=== PATIENT | female | born 1965 | race Caucasian/White ===

== ENCOUNTER → 2018-01-11 | Outpatient (CLI) | payer OTHER ==
[~2018-01-11] MED LIST: ATOR10 PO; DEPO400I IM; ECASA81 PO; MELA1TAB18 PO; MILK500C2 PO; MULT-65 PO; OMEGCAP PO; OMEP20TA93 PO; PRAV40TA2 PO; PRIL20TA2 PO; PROBCAP28 PO; TAB-TAB PO; VITA100021 SL; VITA2000 PO; VITA500T83 PO
[2018-01-11 14:07] LABS: AUTOMATED NEUTROPHIL # 3.8 TH/MM3 (1.8-7.7); BASOPHIL % 0.7 % (0.0-2.0); EOSINOPHIL % 0.5 % (0.0-4.0); HEMATOCRIT 38.3 % (35.0-46.0); HEMOGLOBIN 13.1 GM/DL (11.6-15.3); LYMPH % 30.5 % (9.0-44.0); LYMPHOCYTE # 1.9 TH/MM3 (1.0-4.8); MEAN CORPUSCULAR HEMOGLOBIN 34.3 PG (27.0-34.0); MEAN CORPUSCULAR HGB CONC 34.3 % (32.0-36.0); MEAN PLATELET VOLUME 8.1 FL (7.0-11.0); MONO % 7.9 % (0.0-8.0); MONOCYTE # 0.5 TH/MM3 (0-0.9); NEUT % 60.4 % (16.0-70.0); PLATELET COUNT 287 TH/MM3 (150-450); RED BLOOD COUNT 3.83 MIL/MM3 (4.00-5.30); RED CELL DISTRIBUTION WIDTH 13.3 % (11.6-17.2); WHITE BLOOD COUNT 6.2 TH/MM3 (4.0-11.0)
[2018-01-11 14:25] LABS: BILIRUBIN, URINE NEG (NEG); BLOOD, URINE NEG (NEG); GLUCOSE,URINE NEG (NEG); KETONE, URINE NEG (NEG); NITRITE,URINE NEG (NEG); PH, URINE 5.5 (5.0-8.5); SQUAMOUS EPITHELIAL CELL URINE <1 /hpf (0-5); URINE COLOR COLORLESS (YELLW/STRAW); URINE LEUKOCYTE ESTERASE TRACE (NEG)
--- NOTE | 2018-01-12 13:57 | EKG ---
Date Performed: 01/11/2018 Time Performed: 13:08:23 PTAGE: 52 years EKG: Sinus rhythm POSSIBLE RIGHT VENTRICULAR CONDUCTION DELAY BORDERLINE ECG PREVIOUS TRACING : 09/19/2015 15.15 DOCTOR: Walter Thorpe Interpretating Date/Time 01/12/2018 13:54:55
== END ==
LOC: CPRE 12:43
PROVIDERS: ATTEND Obstetrics & Gynecology
DX: Z01.812 Encounter for preprocedural laboratory examination (principal); Z01.810 Encounter for preprocedural cardiovascular examination; N87.0 Mild cervical dysplasia
CPT/HCPCS: 36415; 81001; 85025; 93005

== ENCOUNTER → 2018-01-13 | Day surgery (SDC) | payer OTHER ==
[~2018-01-13] MED LIST changes: +APREPITANT 40 MG CAP; -ATOR10 PO; -DEPO400I IM; +DO NOT ADM ANY ANTICOAGULANT DRUGS; -ECASA81 PO; +FAMOTIDINE 20 MG/2 ML VIAL; +INSULIN HUMAN REGULAR 1,000 UNITS/10 ML VIAL SQ; +KETOROLAC TROMETHAMINE 30 MG/ML (IVP) VIAL IV PUSH; +LACTATED RINGER'S 1000 ML INJ 1,000 ML IV; +LIDOCAINE HCL 1% PF 5 ML SYRINGE OTHER; -MELA1TAB18 PO; +METOCLOPRAMIDE HCL 10 MG/2 ML VIAL IV; +METOPROLOL TARTRATE 25 MG TAB PO; +MIDAZOLAM HCL 2 MG/2 ML VIAL; -MILK500C2 PO; -MULT-65 PO; -OMEGCAP PO; -OMEP20TA93 PO; +ONDANSETRON HCL 4 MG/2 ML VIAL IV PUSH; -PRAV40TA2 PO; -PRIL20TA2 PO; -PROBCAP28 PO; +PROPOFOL 200 MG/20 ML AMP IV; +SODIUM CHLORID 0.9% 500 ML IV; -TAB-TAB PO; -VITA100021 SL; -VITA2000 PO; -VITA500T83 PO; +ceFAZolin 2 GM/NS PREMIX 100 ML IV; +oxyCODONE/ACETAMINOPHEN 5 MG/325 MG TAB PO
[2018-01-13] MEDS: LACTATED RINGER'S 1000 ML IV (06:40)
[2018-01-13] MEDS: POVIDONE IODINE 5% (ANTISEPSIS KIT) 4 APPLICATIONS EACH NARE (06:40)
[2018-01-13] MEDS: CHLORHEXIDINE GLUCONATE 2 % 1 PACK (2 CLOTHS) TOPICAL (06:40)
[2018-01-13] MEDS: ACETAMINOPHEN 1000 MG/100 ML 100 ML IV (06:50)
[2018-01-13] MEDS: ceFAZolin INJ 1,000 MG VIAL (07:25)
[2018-01-13] MEDS: LIDOCAINE 0.5%/EPINEPHrine 1:200,000 SOLN 50 ML VIAL (07:35)
== END | disposition home or self-care (01) ==
LOC: HSDC 05:49
DX: D06.7 Carcinoma in situ of other parts of cervix (principal)
CPT/HCPCS: 57522; 88305; 88305-59

== ENCOUNTER 2018-03-17 13:01 | Inpatient (IN) ==
--- NOTE | 2018-03-16 19:51 | MH ---
cc: Jag Montiel MD, John A MD DATE OF ADMISSION: 03/17/2018 ADMITTING DIAGNOSIS: Carcinoma in situ of the cervix. HISTORY OF PRESENT ILLNESS: The patient is a 53-year-old white female, para 2-0-0-2, who had a Pap smear through her primary doctor on 10/13/2017 that showed high-grade dysplasia and returned to see me on 12/09/2017. On her colposcopy ectocervix was benign. ECC was positive. She underwent a LEEP cone biopsy with D and C on 01/13/2018. Pathology returned CIS with at least moderate dysplasia extending to the cervical margin. The ECC was negative. Endometrium was benign. She is now admitted for hysterectomy. PAST MEDICAL HISTORY/PAST SURGICAL HISTORY: She had a right total hip in 2012. She had ruptured appendix in the past. Ovarian wedge resection. MEDICATIONS: Prilosec. ALLERGIES: NONE. SMI: None. OBSTETRIC HISTORY: Two vaginal deliveries. SOCIAL HISTORY: She is , employed. Alcohol: None. Tobacco: Half pack a day for 30 years plus. Drugs: None. FAMILY HISTORY: Noncontributory. PHYSICAL EXAMINATION: GENERAL: A well-nourished, well-developed white female. VITAL SIGNS: Stable. HEENT: Normal. CHEST: Clear. CARDIAC: Regular rate BREASTS: Symmetrical. ABDOMEN: Benign. PELVIC: Shows atrophy. Cervix is small. Uterus is normal size, shape, anterior. No adnexal masses. ASSESSMENT: As above. PLAN: She is now admitted for an exam under anesthesia with either a laparoscopically assisted vaginal hysterectomy bilateral salpingo-oophorectomy or total abdominal hysterectomy with bilateral salpingo-oophorectomy. While in the office, I explained the procedure, the risks and benefits and complications. The patient would like to proceed. MD MIKE Mehta/ , 07:31 PM , 07:50 PM MIKE
[~2018-03-17 13:01] MED LIST changes: -APREPITANT 40 MG CAP; -DO NOT ADM ANY ANTICOAGULANT DRUGS; -FAMOTIDINE 20 MG/2 ML VIAL; +Glycopyrrolate Inj 1 MG/5 ML Syringe IV.PUSH ONE; -INSULIN HUMAN REGULAR 1,000 UNITS/10 ML VIAL SQ; -KETOROLAC TROMETHAMINE 30 MG/ML (IVP) VIAL IV PUSH; +Ketorolac Inj 30 MG/ML (IVP) Vial IV.PUSH ONE; -LACTATED RINGER'S 1000 ML INJ 1,000 ML IV; -LIDOCAINE HCL 1% PF 5 ML SYRINGE OTHER; +Lidocaine PF 1% Inj 5 ML Syringe INFILTRATN ONE; -METOCLOPRAMIDE HCL 10 MG/2 ML VIAL IV; -METOPROLOL TARTRATE 25 MG TAB PO; -MIDAZOLAM HCL 2 MG/2 ML VIAL; +Neostigmine Inj 5 MG/5 ML Syringe IV.PUSH ONE; -ONDANSETRON HCL 4 MG/2 ML VIAL IV PUSH; -PROPOFOL 200 MG/20 ML AMP IV; +Phenylephrine/NS 1000 MCG/10ML Syringe IV.PUSH ONE; -SODIUM CHLORID 0.9% 500 ML IV; -ceFAZolin 2 GM/NS PREMIX 100 ML IV; +hydrALAZINE HCl Inj 20 MG/ML Vial IV.PUSH ONE; -oxyCODONE/ACETAMINOPHEN 5 MG/325 MG TAB PO
[2018-03-17] MEDS ORDERED: Chlorhexidine Gluconate 2% 1 Pack (2 Cloths) TOPICAL SCH (13:45)
[2018-03-17] MEDS ORDERED: Metoprolol Tartrate 25 MG Tablet PO SCH (13:45)
[2018-03-17] MEDS ORDERED: Bupivacaine/Epinephrine 0.5% Inj 50 ML Vial ONE (13:56)
[2018-03-17] MEDS ORDERED: Estrogens Congugated Vag Cream w/app 30 GM Tube VAGINAL ONE (13:56)
[2018-03-17] MEDS ORDERED: Sodium Chlor 0.9% Inj 500 ML IV.SIG SCH (14:00)
[2018-03-17] MEDS ORDERED: Famotidine PF Inj 20 MG/2 ML Vial ONE (14:18)
[2018-03-17] MEDS ORDERED: Zolpidem Tartrate 5 MG Tablet PO PRN (17:15)
[2018-03-17] MEDS ORDERED: Naloxone Inj 0.4 MG/ML Vial IV.PUSH PRN (17:15)
[2018-03-17] MEDS ORDERED: HYDROmorphone PF Inj 2 MG/ML Vial ONE (17:17)
[2018-03-17] MEDS ORDERED: fentaNYL Citrate Inj 100 MCG/2 ML Ampul ONE (17:22)
--- NOTE | 2018-03-17 17:51 | MP ---
cc: Jag Monteil MD, John A MD DATE OF OPERATION: 03/17/2018 PREOPERATIVE DIAGNOSIS: SHREYAS 3 of the cervix. POSTOPERATIVE DIAGNOSIS: SHREYAS 3 of the cervix. Pathology pending. PROCEDURE PERFORMED: Exam under anesthesia followed by a LISA/BSO. ANESTHESIA: General ET. SURGEON: Jag Montiel MD REFINISHER: Brenda Jerome, ESTIMATED BLOOD LOSS: About 100 mL FLUIDS: 1.1 liter crystalloid. OBJECTIVE FINDINGS: Following induction of adequate general endotracheal anesthesia, the patient was positioned in the dorsal lithotomy position. Exam under anesthesia revealed a cervical scarring with examination of the fornices from a previous cone biopsy. It was felt her anatomy would best be served by abdominal approach. She was then positioned and prepped and draped supine in the supine position with the bladder being drained via Miller catheterization. The abdomen was opened through a Pfannenstiel incision using the knife to cut down through the skin to the fascia. The fascia was opened transversely, stripped from the muscles. Rectus muscle split in the midline and the peritoneum opened sharply without incident. The elastic retractor was placed. Bowel was packed off using moistened laps and large clots passed through uterine cornua. Uterus was normal size, shape. Right ovary was clear of adhesions. Left had some adhesions to the sigmoid which were lysed sharply. The right round ligament was suture ligated with 0 Vicryl cut. The right ovarian pedicle was clamped with 3 Heaneys, cut, and ligated x2 with 0 Vicryl, the same on the left side. Bladder flap was taken down sharply. Uterines bilaterally and the right uterine clamped with 3 Heaneys, cut, ligated x2 with 0 Vicryl, the same on the left.. Straight Nicholas used to take the cardinals, uterosacrals, clamping, cutting, and ligating with 0 Vicryl in Brennon fashion until below the cervix. The anterior vaginal wall was opened sharply and cervix excised off the vaginal cuff. Each corner of the vaginal cuff was closed and suspended to respective uterosacral ligaments with modified Waddell stitch of 0 Vicryl. The remainder of the cuff was closed with a running locking stitch of 0 Vicryl. Each corner reinforced with 0 Vicryl interrupted. Inspection of both ureters revealed good peristalsis. The laps were packed in and held for 5 minutes and checked. There was no bleeding. One area of adhesions on the sigmoid was oversewn with 3-0 Vicryl. The operative sites coasted with Evaseal. All laps and instruments removed. Counts were correct. The anterior peritoneum closed with running 2-0 Vicryl. Muscles were sprayed with Evaseal. The fascia was closed with a running locking stitch of 0 Vicryl, corner to midline and tied, subcu with running 3-0 skin with running stitch of 3-0 Monocryl. Dermabond applied. All counts correct. The patient was awakened and taken to the recovery room in good condition. MD MIKE Mehta/ , 04:58 PM , 05:50 PM MTDD
[2018-03-17] MEDS ORDERED: KCL 20 mEq/D5W/NaCl 0.45% Inj 1,000 ML ONE (18:32)
[2018-03-17] MEDS ORDERED: HYDROmorphone PCA Inj 6 MG/30 ML PCA.VIAL PCA ONE (18:32)
[2018-03-17] MEDS ORDERED: HYDROmorphone PCA Inj 6 MG/30 ML PCA.VIAL PCA PRN (18:45)
[2018-03-17] MEDS ORDERED: HYDROmorphone PF Inj 2 MG/ML Vial IV.PUSH ONE (19:15)
[2018-03-17] MEDS: Docusate Sodium 100 MG Capsule PO SCH (21:04)
[2018-03-17 21:18] LABS: Hematocrit 33.7 % (35.0-46.0); Hemoglobin 11.3 gm/dL (11.6-15.3)
[2018-03-18] MEDS: KCL 20 mEq/D5W/NaCl 0.45% Inj 1,000 ML IV.CONT SCH ×4 (03:19→20:05)
[2018-03-18 08:03] LABS: Baso % (Auto) 0.1 % (0.0-2.0); Hematocrit 32.3 % (35.0-46.0); Hemoglobin 10.9 gm/dL (11.6-15.3); Lymph # (Auto) 0.7 th/mm3 (1.0-4.8); Lymph % (Auto) 6.1 % (9.0-44.0); Mean Corpuscular HGB Conc 33.7 % (32.0-36.0); Mean Corpuscular Hemoglobin 34.5 pg (27.0-34.0); Mean Corpuscular Volume 102.2 fL (80.0-100.0); Mean Platelet Volume 8.9 fL (7.0-11.0); Mono # (Auto) 0.8 th/mm3 (0.0-0.9); Mono % (Auto) 6.9 % (0.0-8.0); Neut # (Auto) 9.6 th/mm3 (1.8-7.7); Neut % (Auto) 86.9 % (16.0-70.0); Platelet Count 167 th/mm3 (150-450); Red Blood Count 3.16 mil/mm3 (4.00-5.30); Red Cell Distribution Width 13.3 % (11.6-17.2); White Blood Count 11.1 th/mm3 (4.0-11.0)
[2018-03-18 08:29] LABS: Anion Gap 7 meq/L (5-15); Blood Urea Nitrogen 9 mg/dL (7-18); Carbon Dioxide 24.6 meq/L (21.0-32.0); Chloride 105 meq/L (98-107); Glomerular Filtration Rate Greater Than 89 mL/min (>89); Glucose,Random 188 mg/dL (74-106); Potassium 4.4 meq/L (3.5-5.1); Sodium 137 meq/L (136-145)
[2018-03-18] MEDS: Docusate Sodium 100 MG Capsule PO SCH ×2 (08:47→20:05)
[2018-03-18] MEDS: Pantoprazole Sodium 20 MG DR Tablet PO SCH (08:47)
[2018-03-18] MEDS: Ketorolac Inj 30 MG/ML (IVP) Vial IV.PUSH SCH ×2 (16:46→23:02)
[2018-03-19] MEDS: KCL 20 mEq/D5W/NaCl 0.45% Inj 1,000 ML IV.CONT SCH (03:44)
[2018-03-19] MEDS: Ketorolac Inj 30 MG/ML (IVP) Vial IV.PUSH SCH ×2 (05:35→11:51)
--- NOTE | 2018-03-19 06:52 | MD ---
cc: Jag Montiel MD DATE OF DISCHARGE: 03/19/2018 ADMITTING DIAGNOSIS: Carcinoma in situ of the cervix. DISCHARGE DIAGNOSES: Carcinoma in situ of the cervix, pathology pending. HISTORY OF PRESENT ILLNESS: The patient is a 53-year-old white female, para 2-0-0-2, who had a cone biopsy for SHREYAS 3 on 01/13/2018 with SHREYAS 2 extending to the endocervical margin. She has admitted for hysterectomy. Underwent a LISA/BSO on 03/17/2018 did well. Discharged home in excellent condition on 03/19/2018. Her pre and post postop labs were normal. She was advised NPV, light activity, no driving. Return to see me in 2 weeks. She will take her routine medication at home as well as a Cipro prescription was started prior to admission for an asymptomatic cystitis. She was given a prescription for: 1. Percocet 5 one to two p.o. every 4 hours p.r.n., #36, no refill. 2. Zofran ODT 8 mg p.o. q. 8 hours p.r.n. #10, refill 1 if needed. Jag Montiel MD JAW/DL , 06:41 AM , 06:51 AM
[2018-03-19] MEDS: Pantoprazole Sodium 20 MG DR Tablet PO SCH (08:06)
[2018-03-19] MEDS: Docusate Sodium 100 MG Capsule PO SCH (08:07)
[2018-03-19] MEDS ORDERED: Ciprofloxacin 250 MG Tablet PO SCH (09:00)
== END 2018-03-19 13:58 | disposition home or self-care (01) ==
LOC: HSDC 13:01 → HSDI 17:15 → H1EA 18:47
PROVIDERS: ADMIT Obstetrics & Gynecology; ATTEND Obstetrics & Gynecology